=== PATIENT | female | born 1945 | race Caucasian/White ===

== ENCOUNTER → 2018-07-25 | Outpatient (CLI) | payer BC ==
[~2018-07-25] MED LIST: ACCUNEB SO1.25 MG/1 INH; ACIDOPHILUS1 EAC3 PO; ALDACTONE25 MG PO; APAP500 PO; ASPIR 8181 MG PO; ASPIRIN EC325 MG PO; AUGMENTIN 875875 MG PO; CARVEDILOL6.25 MG PO; COLACE 100 MG100 MG PO; CORAL CALCIUM1 EAC4 PO; DUONEB 2.5-0.5 M3 ML INH; ESTER-C 1,0001 EACH PO; ESTER-C 500 MG1 EACH PO; FLEXERIL PO; FLONASE 0.05%50 MCG NASAL; IBUPROFEN 200200 M1 PO; KEFIR PROBIOTIC; LASIX 20 MG TAB20 MG PO; LEVAQUIN 500 M500 M2 PO; LOPERAMIDE 2 MG2 M1 PO; METAMUCIL PAC1 UDPKT PO; MILK OF MA2400 MG/10 PO; MOVE FREE JOIN1 EACH PO; MUCINEX TA600 MG/TA2 PO; MUCINEX100 MG PO; NEURONTIN 300300 M1 PO; NICOTINE TRANSD21 M1 TRANSDERM; NORCO 5-325 TA1 EACH PO; POTASSIUM20 PO; PRENATAL PO; PRILOSEC 20 MG20 MG PO; PROAIR HFA8.5 GM INH; PROBIOTIC ACID1 EAC3 PO; PROTONIX40 M1 PO; PULMICORT0.5 MG/22 INH; SINGULAIR 10 MG10 M1 PO; SPIRIVA INH; SYMBICORT160 MCG/4. INH; TYLENOL EXTRA500 MG PO; XARELTO10 MG PO; ZANAFLEX2 M1 PO; ZINC SULFATE 2220 M1 PO; ZINC50 M1 PO
--- NOTE | 2018-09-04 15:56 | PAINCON ---
[address] [address] PAIN MANAGEMENT CONSULTATION Name: AMISHA ROLLINS [facility] [id number] Admission: 07/25/18 Attend Phys: María Elena Pelaez MD Discharge: Date of : 41 Report #: [id number] THIS REPORT FOR: //name// CC: Keren Pelaez DATE OF SERVICE: 07/25/2018 CHIEF COMPLAINT: Chronic low back pain. HISTORY OF PRESENT ILLNESS: The patient is a 72-year-old female who has been referred to the pain clinic for evaluation. The patient has pain involving her low back. She complains of pain that is radiating down into her hips and legs. Notes that any movement exacerbates and causes increased severity of pain. The patient has been treated with physical therapy for 2 weeks. She feels that has been helpful. She has had a right hip replacement. She has a history of a broken left hip. She has been on a Medrol Dosepak. Has used [place] 5/325 up to 3 tablets a day as well as ibuprofen 200 mg, gabapentin 300 mg, and Zanaflex. The patient has pain with sitting and any movement, even while in the walker. These all cause severe pain. Finds it completely unbearable to live with it. Pain is made worse by any movement big or small. Pain is improved by use of pain medications, lying on a heating pad with legs on 5 pillows can ease the pain temporarily at times. ALLERGIES: ERYTHROMYCIN. CURRENT MEDICATIONS: Gabapentin 300 mg 1 p.o. 3 times daily, Zanaflex 2 capsules 2 mg 1-3 times daily, Tylenol Extra Strength 500 mg 2 tablets 3 times daily, Singulair 10 mg 1 at bedtime, Lasix 40 mg a.m. and 40 mg p.m., potassium 20 mEq, Prilosec 20 mg 1-2 daily, lactobacillus acidophilus, Mucinex 400 mg 1-2 tablets daily, Move Free one tablet daily, aspirin 81 mg, zinc 50 mg 1 daily, capsule 1 daily, Cata-C 2 tablets daily, Imodium 2-3 tablets daily, Keflex, probiotic, inhalers, Flonase 2 times daily, Symbicort 2 puffs 2 times daily, Spiriva 2 puffs daily, albuterol 2 puffs daily, hydrocodone 5/325 one-two tablets q. 6 hours p.r.n., ibuprofen 200 mg 2 tablets q. 4 hours. PAST MEDICAL HISTORY: Asthma, lung disease/COPD congestive heart failure, gallbladder disease, colon problems, stomach problems, emotional problems, and joint disease/arthritis. Hospitalized for back pain in 12/2007. PAST SURGICAL HISTORY: Colonoscopy, cholecystectomy, appendectomy, hernia repair in 2008, cataract surgery in bilateral 2009, eyelid surgery, upper and lower in 2008, hip replacement, right in 2005, rectocele repair in 2002, hemorrhoidectomy in 1979, tubal ligation in 1977, hysterectomy/bladder/rectocele in 2000, hernia repair in 2014, and [place]il[place]omy [place] [address] [address] PAIN MANAGEMENT CONSULTATION Name: AMISHA ROLLINS Room: [facility]#: [id number] Admission: 07/25/18 Attend Phys: María Elena Pelaez MD Discharge: Date of : 41 Report #: [id number] REVIEW OF SYSTEMS: Per HPI. LABORATORY DATA: MRI of lumbar spine dated 06/18/2015, 1. L1-L2 level which appears to result in a dsts-nz-pgyachsi central canal stenosis as well as a moderate left and severe right neural foraminal stenosis. 2. L3-L4, broad-based disk osteophyte complex present at the L3-L4 level in addition to bilateral facet hypertrophy. These findings result in mild to moderate central canal stenosis as well as severe right and zxbegpiq-fu-arzmej left neural foraminal stenosis. 3. L4-L5, broad-based osteophyte complex is present at L4-L5 level with a more prominent for left lateral component. Bilateral facet hypertrophy is present at this level. These findings resulting in mild central canal stenosis, zhdbeqov-pb-puniaj left lateral recess stenosis, and severe left and mild right neural foraminal stenosis. These findings result in mild right and moderate left neural foraminal stenosis. 4. Prominent levoscoliosis involving the lumbar spine. Fairly extensive multilevel degenerative disk and facet disease resulting in varying degrees of central canal, lateral recess, and neural foraminal stenosis. PAIN CLINIC ASSESSMENT: 1. Osteoarthritic changes in the back. 2. Rheumatoid arthritis. The patient is not being treated for rheumatoid arthritis. 3. Height 5 feet 2 inches, weight 109 pounds, BMI is 20. 4. Vital signs: Blood pressure 105/70, heart rate 103, respiratory rate 16, room air saturation is 93%, temperature 97.8. 5. Pain intensity today, 07/01. 6. Fall risk. The patient fell and broke her hip about a year ago in November, has had a right hip replacement. 7. Blood thinner. The patient is not on a blood thinning medication. 8. Hypertension. The patient is not being treated for hypertension. 9. Opioids greater than 6 weeks. The patient is not receiving opioid medications from the pain clinic. 10. Risk assessment tool. 11. Functional assessment tool. 12. Recreational drug use. The patient denies. 13. Tobacco: The patient has a history of tobacco use, one-half pack of cigarettes per day at this juncture. 14. Alcohol: The patient denies use of alcoholic beverages. PHYSICAL EXAMINATION: GENERAL: The patient is a 72-year-old female, appears her stated age. She is alert and oriented x 3. NECK: Without adenopathy or JVD. LUNG: Sounds, difficult to appreciate secondary [place] [address] PAIN MANAGEMENT CONSULTATION Name: RIAAMISHA A Room: [facility]#: [id number] Admission: 07/25/18 Attend Phys: María Elena Pelaez MD Discharge: Date of : 41 Report #: [id number] HEART: Regular rate. MUSCULOSKELETAL: The patient complains of pain and discomfort in the lower portion of her back. Complains of right hip pain, left hip pain. IMPRESSION: 1. Back pain. 2. Bilateral hip pain. 3. Asthma. 4. Lung disease/Chronic obstructive pulmonary disease. 5. Congestive heart failure. 6. Gallbladder disease. 7. Colon problems. 8. Stomach problems. 9. Emotional problems. 10. Joint disease/arthritis. 11. Hospitalized for back pain in 12/2007. RECOMMENDATION: The patient may be a candidate for an epidural steroid injection attempt. We will consider the possibility. Risks and benefits will be discussed with the patient. Possible complications which could include but are not limited to infection, increased muscle soreness, headache, bleeding, worsening pain, no improvement in pain. We would like to thank you for letting us participate in her care. Hope she continues to improve. <ELECTRONICALLY SIGNED> By: María Elena Pelaez MD 09/04/18 [id number]. Riaz Pelaez MD /nt
== END ==
LOC: M.PC 04:49
DX: M54.5 Low back pain (principal); G89.29 Other chronic pain; M25.552 Pain in left hip; M25.551 Pain in right hip; J45.909 Unspecified asthma, uncomplicated; I50.9 Heart failure, unspecified; K82.9 Disease of gallbladder, unspecified; M19.90 Unspecified osteoarthritis, unspecified site